=== PATIENT | female | born 1995 | race Caucasian/White ===

== ENCOUNTER 2017-07-16 10:57 | Day surgery (SDC) | payer OTHER ==
[2017-07-08 09:55] LABS: APPEARANCE,URINE CLEAR; BILIRUBIN,URINE NEGATIVE (NEGATIVE); GLUCOSE, URINE NEGATIVE (NEGATIVE); KETONES,URINE NEGATIVE (NEGATIVE); LEUKOCYTE ESTERASE,URINE NEGATIVE (NEGATIVE); NITRITE,URINE NEGATIVE (NEGATIVE); PROTEIN,URINE NEGATIVE (NEGATIVE); URINE SPECIFIC GRAVITY 1.013; UROBILINOGEN,URINE NEGATIVE mg/dL (<2.0)
[2017-07-08 09:56] LABS: ABSOLUTE BASOPHILS # (AUTO) 0.1 10^3/uL (0.0-0.2); ABSOLUTE EOSINOPHILS # (AUTO) 0.2 10^3/uL (0.0-0.6); ABSOLUTE LYMPHOCYTES (AUTO) 3.1 10^3/uL (0.5-4.7); ABSOLUTE MONOCYTES (AUTO) 0.6 10^3/uL (0.1-1.4); ABSOLUTE NEUT (AUTO) 9.4 10^3/uL (1.7-8.2); BASOPHILS % (AUTO) 0.7 % (0-2); EOSINOPHILS % (AUTO) 1.4 % (0-6); HEMATOCRIT 39.3 % (36.0-47.0); HEMOGLOBIN 13.3 g/dL (12.0-15.5); HGB HCT DIFFERENCE 0.6; LYMPHOCYTES % (AUTO) 23.1 % (13-45); MEAN CORPUSCULAR HEMOGLOBIN 28.5 pg (27.0-33.4); MEAN CORPUSCULAR HGB CONC 33.7 g/dL (32.0-36.0); MEAN CORPUSCULAR VOLUME 85 fl (80-97); MONOCYTES % (AUTO) 4.4 % (3-13); RED BLOOD COUNT 4.66 10^6/uL (3.72-5.28); RED CELL DISTRIBUTION WIDTH 13.4 % (11.5-14.0); SEGMENTED NEUTROPHILS % (AUTO) 70.4 % (42-78); WHITE BLOOD COUNT 13.4 10^3/uL (4.0-10.5)
[2017-07-08 10:23] LABS: ANION GAP 15 (5-19); BLOOD UREA NITROGEN 9 mg/dL (7-20); CALCIUM 10.1 mg/dL (8.4-10.2); CARBON DIOXIDE 22 mmol/L (22-30); CHLORIDE 105 mmol/L (98-107); CREATININE RESULT 0.65 mg/dL (0.52-1.25); GLUCOSE 81 mg/dL (75-110); POTASSIUM 5.1 mmol/L (3.6-5.0)
--- NOTE | 2017-07-08 12:26 | EKG REPORT ---
SEVERITY:- ABNORMAL ECG - SINUS RHYTHM WITH PACS SHORT [place] INTERVAL, ACCELERATED AV CONDUCTION : Confirmed by: Kulwant Damon MD 08-Jul-2017 12:25:41
[~2017-07-16 10:57] MED LIST: BUPIVACAINE HCL 0.5 % INJ/PF 30 ML SDV ONE; CEFAZOLIN 2 GM/D5W RTU 2 GM/50 ML RTUPB IV PRN; DEXAMETHASONE SOD PHOSPHATE INJ 4 MG/1 ML VIAL ONE; EPINEPHRINE INJ/PF 1 MG/1 ML AMPULE ONE; LACTATED RINGERS 1000 ML IV PRN; LIDOCAINE 2% INJ-PF (20 MG/ML) 10 ML AMPUL ONE; METOCLOPRAMIDE HCL INJ/PF 10 MG/2 ML SDV ONE; ONDANSETRON HCL INJ/PF 4 MG/2 ML SDV ONE; SUCCINYLCHOLINE CHLORIDE INJ 200 MG/10 ML VIAL ONE
[2017-07-16] MEDS ORDERED: FENTANYL CITRATE INJ/PF 100 MCG/2 ML AMPUL ONE (12:11)
[2017-07-16] MEDS ORDERED: MIDAZOLAM 2 MG/2 ML INJ ONE (12:11)
[2017-07-16] MEDS ORDERED: IBUPROFEN INJ 800 MG/8 ML VIAL IV ONE (12:12)
[2017-07-16] MEDS ORDERED: PROPOFOL INJ 200 MG/20 ML VIAL IV ONE (12:12)
[2017-07-16] MEDS ORDERED: EPHEDRINE SULFATE INJ 50 MG/1 ML AMPULE ONE (12:12)
[2017-07-16] MEDS ORDERED: ACETAMINOPHEN 100 ML IV ONE (12:12)
[2017-07-16] MEDS ORDERED: HYDROMORPHONE HCL INJ/PF 2 MG/ML AMPULE ONE ×2 (12:12→18:00)
[2017-07-16] MEDS ORDERED: FENTANYL CITRATE INJ/PF 100 MCG/2 ML AMPUL IV PRN ×3 (15:08)
[2017-07-16] MEDS ORDERED: MEPERIDINE HCL/PF INJ 25 MG/1 ML DISP.SYRIN IV PRN (15:08)
[2017-07-16] MEDS ORDERED: ONDANSETRON HCL INJ/PF 4 MG/2 ML SDV IV PRN (15:08)
[2017-07-16] MEDS ORDERED: DIPHENHYDRAMINE HCL 50 MG/ML VIAL IV PRN (15:08)
[2017-07-16] MEDS ORDERED: PROMETHAZINE HCL INJ 25 MG/1 ML VIAL IV PRN ×2 (15:08)
--- NOTE | 2017-07-16 15:35 | Operative Report ---
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 recalcitrant trochanteric bursitis POSTOPERATIVE DIAGNOSIS: Same OPERATION: Left hip arthroscopy with labral repair 1 anchor. Femoral plasty. Fractional lengthening of the iliopsoas tendon. Endoscopic IT band release SURGEON: BON JEAN BAPTISTE ANESTHESIA: GA TISSUE REMOVED OR ALTERED: None COMPLICATIONS: None ESTIMATED BLOOD LOSS: Less than 20 mm INTRAOPERATIVE FINDINGS: As above PROCEDURE: Patient was brought to the operating room. The patient was induced and intubated in supine position. IV antibiotics were given prior to entering the OR. Boots were placed on both lower extremities. Peroneal post was applied and the patient was brought down to the perineal post. Both extremities were securing and the hip distraction system. At this point traction was placed in both extremities. C-arm was used to guide us and allow us to dislocate the left hip successfully. Once sedated gross traction and then gentle traction and confirm a dislocation under C-arm I started the time her the right lower extremity was taken off of gross traction. This point the left hip was prepped and draped in a normal sterile surgical fashion. Timeout was done identifying the left hip as the correct site. With the use of C-arm I placed a spinal needle and the anticipated anterolateral portal site. Once I felt that I piercing the capsule, I inflated the capsule with air using a 60 mL sterile syringe, this was showing proper placement intra-articularly. I this point I placed a nitinol wire and removed the spinal needle. I proceeded to dilate appropriately after using a scalpel to do a incision establish a my portal site. Camera then was introduced and under direct visualization proceeded to use a spinal needle to status my anterior portal site. I marked the ASIS and the midline in the midportion of the thigh to make sure that we were on the lateral aspect of the spine to avoid any neurovascular structures. Once I placed a spinal needle just lateral to the my marking into the hip I proceeded to use the same technique of placing nitinol wire, removed the needle and then proceeded to dilate the capsule after establishing the portal site with a scalpel. At this point I proceeded to do my arthrotomy using a retractable [place] blade. I proceeded to use switching sticks to changed my camera to the anterior portal and allowing to do complete my arthrotomy from the anterolateral portal using the retractable [place] blade. At this point once the arthrotomy was completed I proceeded to do my diagnostic arthroscopy. Diagnosis capture most of the labrum was intact except for the anterior superior portion which had a small rent tear and significant bruising. At this point with arthrotomy I then proceeded to do fractional lengthening of iliopsoas tendon which was adjacent to the small labral tear and erythema. I used a real frequency ablator also to trim the edges of the tear. I proceeded then to use my hip arthroscopy scorpion and I passed the FiberWire through the labrum. This was secured and the anchor and then I proceeded to use my drill guide and drill on the rim of acetabulum. There was no perforation of violation of the articular cartilage. I then proceeded to place my anchoring securing the fiber wire and anchor and subsequently my labrum onto the acetabular rim. Hammered it down and then released the disposable portion and used arthroscopic cutter to cut the remaining strands. I probed and showed good fixation and no other area of a tear that needed to be addressed. I released the traction at 40 minutes and to my attention to the peripheral compartment where showed a small cam lesion. Through this anterior portal I was able to use a 5.5 oval bur and did a femoral plasty using the C-arm as guidance as well as direct visualization. She was taken showing my femoral plasty and then I proceeded to do the partial release of the IT band. I redirected the scope in the space between the IT band and the vastus lateralis. C arm also assisted. A third incision was done right lateral to the thigh and distal to the first portal placed. Through this portal use the radio frequency ablator and shaver to do resection of the bursa and partial release of the IT band. Pictures were taken showing the release. At this point fluid were removed and then portal sites were closed with 3-0 nylon. This was covered with Xeroform 4 x 4 dressing and ABD pad followed by Medipore tape to secure the dressing. Drapes were removed and patient was then extubated and sent to PACU in stable condition.
[2017-07-16] MEDS ORDERED: OXYCODONE-ACETAMINOPHEN 5-325 MG TABLET PO PRN ×2 (15:38)
--- NOTE | 2017-07-16 15:38 | PDOC DISCHARGE SUMMARY ---
Discharge Summary (SDC) - Discharge Final Diagnosis: Left hip arthroscopy with labral repair, femoral plasty, fractional lengthening of iliopsoas tendon and IT band release Date of Surgery: 07/16/17 Discharge Date: 07/16/17 Forms: ASU Anesthesia D/C Instruction, Discharge POC-Surgical Service Treatment or Instructions: Patient instructed to follow up in 10-14 days. Patient instructed to keep dressing dry clean and intact for 4 days and then allowed to remove. At that point patient can shower and apply Band-Aids as needed. Patient can do range of motion as tolerated. Avoid external rotation of the operative hip. Nonweightbearing with crutches 6 weeks Patient instructed to call the office if patient develops fevers chills redness and drainage from the surgical sites. Prescriptions: Oxycodone HCl/Acetaminophen [Percocet 5-325 mg Tablet] 1 - 2 tab PO ASDIR PRN # 60 tablet PRN Reason: Referrals: BON SANTO MD [ACTIVE STAFF] - 07/27/17 8:30 am Discharge Diet: As Tolerated Respiratory Treatments at Home: Deep Breathing/Coughing Discharge Activity: Keep Legs Elevated, No Lifting/Push/Pulling, Slowly Increase Activity Home Care Assistance: None Needed Adaptive Devices on Discharge: Axillary Crutches Report the Following to Your Physician Immediately: Shortness of Breath, Vomiting, Increase in Pain, Fever over 101 Degrees, Unusual Bleeding, Redness, Swelling, Warmth, Increased Soreness, Drainage-Yellow, Drainage-Catherine, Drainage- Green, Drainage-Foul Smelling
[2017-07-16] MEDS ORDERED: ONDANSETRON HCL INJ/PF 4 MG/2 ML SDV ONE (17:59)
[2017-07-16 18:49] VITALS: BP 101/58
--- NOTE | 2017-07-16 19:02 | RADIOLOGY REPORT (SQ) ---
EXAM DESCRIPTION: NO CHG FLUORO; HIP LEFT AP/LATERAL COMPLETED DATE/TIME: 07/16/2017 6:54 pm REASON FOR STUDY: LT HIP ARTHROSCOPY M25.852 OTHER SPECIFIED JOINT DISORDERS, LEFT HIP COMPARISON: None. FLUOROSCOPY TIME: 0.5 minutes. 3 images saved to PACS. TECHNIQUE: Intra-operative images acquired during surgical procedure to evaluate progress. NUMBER OF IMAGES: 3 images. LIMITATIONS: None. FINDINGS: Images acquired during hip arthroscopy. IMPRESSION: IMAGE(S) OBTAINED DURING PROCEDURE. COMMENT: Quality ID [id number]: Final reports for procedures using fluoroscopy that document radiation exp osure indices, or exposure time and number of fluorographic images (if radiation exposure indices are not available) Please consult full operative report of the attending physician for description of the procedure. TECHNICAL DOCUMENTATION: JOB ID: [id number] [employer]- All Rights Reserved
--- NOTE | 2017-07-16 19:02 | RADIOLOGY REPORT (SQ) ---
EXAM DESCRIPTION: NO CHG FLUORO; HIP LEFT AP/LATERAL COMPLETED DATE/TIME: 07/16/2017 6:54 pm REASON FOR STUDY: LT HIP ARTHROSCOPY M25.852 OTHER SPECIFIED JOINT DISORDERS, LEFT HIP COMPARISON: None. FLUOROSCOPY TIME: 0.5 minutes. 3 images saved to PACS. TECHNIQUE: Intra-operative images acquired during surgical procedure to evaluate progress. NUMBER OF IMAGES: 3 images. LIMITATIONS: None. FINDINGS: Images acquired during hip arthroscopy. IMPRESSION: IMAGE(S) OBTAINED DURING PROCEDURE. COMMENT: Quality ID [id number]: Final reports for procedures using fluoroscopy that document radiation exp osure indices, or exposure time and number of fluorographic images (if radiation exposure indices are not available) Please consult full operative report of the attending physician for description of the procedure. TECHNICAL DOCUMENTATION: JOB ID: [id number] [employer]- All Rights Reserved
== END 2017-07-16 19:07 | disposition home or self-care (01) ==
LOC: OROUT 10:57
PROVIDERS: ATTEND Orthopaedic Surgery
PROC: 0L8K4ZZ Division of Left Hip Tendon, Percutaneous Endoscopic Approach (ICD-10-PCS; 2017-07-16)
PROC: 0SQB4ZZ Repair Left Hip Joint, Percutaneous Endoscopic Approach (ICD-10-PCS; principal; 2017-07-16 13:00)
DX: M25.852 Other specified joint disorders, left hip (principal); M76.32 Iliotibial band syndrome, left leg; M70.62 Trochanteric bursitis, left hip; S73.192A Other sprain of left hip, initial encounter; X58.XXXA Exposure to other specified factors, initial encounter; M25.552 Pain in left hip
CPT/HCPCS: 29914; 29916; 27299; 93005; 36415 ×2; 84132; 85025; 81025; 80048; 81001; 73502; 93010; J2250; J1100; J0171; J3010; J2765; J1170; J0330; J2405; J2704; J3490; J0690; J0131; J1741; 01202